=== PATIENT | male | born 1985 | race Caucasian/White ===

== ENCOUNTER → 2021-05-15 00:24 | Outpatient (CLI) | payer BC, SELFPAY ==
[2021-05-15 21:20] LABS: SARS-CoV-2 RNA PCR Negative
== END ==
PROVIDERS: PCP Emergency Medicine; Visit Provider Surgery
DX: Z01.812 Encounter for preprocedural laboratory examination (principal); Z20.822 Contact with and (suspected) exposure to COVID-19
CPT/HCPCS: C9803; U0003; U0005

== ENCOUNTER 2021-05-19 02:01 | Day surgery (SDC) | payer BC, SELFPAY ==
[2021-05-12 12:14] VITALS: BMI 34.2
[2021-05-19 12:36] VITALS: BP 147/93; PULSE 93; RESP 16; TEMP 36.4; O2SAT 99
--- NOTE | 2021-05-19 13:13 | P.PNAN_ITS ---
Anes - Initial Pre Proc Eval Procedure: Operation Date: 05/19/21 14:30 Proposed Procedures p Ventral Hernia Repair with Possible Mesh - Kike Hester DO Date/Time: 05/19/21 13:13 Surgeon: Kike Hester DO Pre Op Diagnosis: Ventral Hernia Patient Data Age: 36 Gender: M Height: 1.85 m Weight: 119 kg Last Vital Signs Temp 36.4 C 05/19/21 12:36 Pulse 93 05/19/21 12:36 Resp 16 05/19/21 12:36 BP 147/93 H 05/19/21 12:36 Pulse Ox 99 05/19/21 12:36 Allergies Allergy/AdvReac Type Severity Reaction Status Date / Time No Known Allergies Allergy Verified 05/19/21 12:43 Home Medications Medication Instructions Recorded Confirmed Type omeprazole 20 mg capsule,delayed 20 mg PO DAILY 04/28/21 05/12/21 History release Patient hx anesthesia problems: none Family hx anesthesia problems: none [facility] Past Medical History Medical History GERD (gastroesophageal reflux disease) High blood pressure Surgical History Surgical History H/O left knee surgery Family History Family History Father Diabetes mellitus Grandparent Diabetes mellitus Cerebrovascular accident Social History Social History (Updated 05/19/21 @ 13:13 by Salvatore Murcia DO) Years smoked: 8 Smoking status: Current every day smoker Tobacco type: e-cigarettes/vaping Alcohol intake: current Alcohol use details: 3-4 drinks every other day Living arrangements: with family 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 Questions were solicited and answers provided to the satisfaction of the patient/family/POA.
[2021-05-19] MEDS: LACTATED RINGERS 1,000 ML 30 ML IV CONT ×2 (13:25→15:23)
[2021-05-19] MEDS: ACETAMINOPHEN 500 MG TABLET 1000 MG PO (13:27)
[2021-05-19] MEDS: KETOROLAC 15 MG/ML VIAL (*BKC) IV PUSH (13:28)
--- NOTE | 2021-05-19 13:58 | WPDHPUPDATE1 ---
History and Physical Update Update Date/Time: 05/19/21 13:58 History and Physical has been reviewed, including an updated exam of the patient. There are NO changes in the patient's condition. Risks, benefits, and alternatives have been discussed and questions answered. Patient agrees to proceed with procedure.
[2021-05-19] MEDS: ceFAZolin 2 GM/D5W 50 ML 2 GM/50 ML BAG IVPB (14:17)
[2021-05-19] MEDS: BUPIVACAINE/EPINEPHRINE 0.5% 10 ML VIAL 30 ML INFILTRATE (14:50)
--- NOTE | 2021-05-19 15:18 | W.PM.PROC2 ---
Procedure Note - Detailed Date of Procedure 05/19/21 Pre-op Diagnosis Ventral Hernia Post-op Diagnosis same Procedure Performed Open ventral hernia repair with 6.6 cm Parietex ventral patch Surgeon Kike Hester, DO Anesthesia general and local (0.5% bupivacaine with epinephrine) Indications This is a 36-year-old man who presents with a painful bulge on his abdomen for the past month. He noticed this just off to the side and just above his umbilicus. It has become more painful with time. A reducible ventral hernia was noted just superior and to the left of his umbilicus on exam. Discussions were made with the patient on treatment options and decision was made to proceed with open ventral hernia repair with mesh. Findings Open ventral hernia repair with mesh was performed. The patient was found to have a 2 cm ventral hernia located just superior to the umbilical stalk. He actually had 2 hernias within close proximity right in this region. The hernia sac was reduced and there was a thin 2 mm bridge of fascia between the 2 small hernias. The bridge of fascia was transected with electrocautery to allow for adequate clearance of the peritoneum below the fascia. A preperitoneal pocket was then created for mesh placement. A 6.6 cm Parietex ventral patch was placed within the preperitoneal pocket and this was secured with 0 Ethibond U-stitch trans fascial sutures at the 4 tabs. The fascia was then closed in a vertical fashion using 0 Ethibond [id number] sutures. No specimens were obtained for pathology. Description of Procedure Procedure as well as risks, benefits, and alternatives were discussed with the patient. Written consent was obtained and placed in chart prior to procedure. Patient was brought back to surgical suite. He was placed supine on operating table. he was then intubated by Anesthesia Department. his abdomen was prepped and draped in sterile fashion using chlorhexidine prep. 0.5% bupivacaine with epinephrine was infiltrated locally around the operative area. A 4 cm curvilinear incision was made just superior to the umbilicus using a 15 blade scalpel. Electrocautery was used for hemostasis and for dissection down through the subcutaneous fat. Hernia sac was encountered and this was carefully freed up from surrounding subcutaneous fat using electrocautery. The hernia sac was freed up all the way down to the level of the fascia, and then it was reduced back down into the abdominal cavity. The umbilical stalk was then lifted off of the fascia with electrocautery. The hernia defect was then measured. This was measuring approximately 20 mm. The decision was made to use a 6.6 cm Parietex ventral patch. The peritoneum was cleared under the fascia circumferentially around the hernia using blunt dissection and electrocautery. Once a wide enough pocket was created for the mesh, the mesh was then placed within this preperitoneal pocket and laid out flat centered on the hernia defect. The mesh appeared to be sitting in proper position. The mesh was then secured at the 4 corners using 0 Ethibond U-stitch trans fascial sutures. Once all 4 sutures were placed, the mesh was lifted up against the abdominal wall and appeared to be properly centered on the hernia defect. The fascia of the hernia defect was then reapproximated over the mesh using 0 Ethibond [id number] sutures. The 4 transfascial sutures were then tied down in place. The repair was inspected and appeared secure. 0.5% bupivacaine with epinephrine was infiltrated around the fascia and subcutaneous space. The umbilical stalk was then reapproximated to the fascia using a 3 0 Vicryl simple interrupted suture. The deep dermis was reapproximated using 3 0 Vicryl simple interrupted sutures, and then the skin was approximated using 4 Monocryl running subcuticular suture. Exofin glue was then applied on top. The patient was then awakened from anesthesia, extubated, and tr
[2021-05-19 15:30] VITALS: BP 90/60; PULSE 91; RESP 22; TEMP 36.6; O2SAT 95
[2021-05-19 15:44] VITALS: BP 120/81; PULSE 81; RESP 16; O2SAT 98
[2021-05-19 15:58] VITALS: BP 128/78; PULSE 86; RESP 15; O2SAT 94
[2021-05-19 16:10] VITALS: BP 122/81; PULSE 78; RESP 15; O2SAT 95
[2021-05-19 16:40] VITALS: BP 118/72; PULSE 78; RESP 16; O2SAT 95
== END 2021-05-19 16:52 | disposition home or self-care (01) ==
PROVIDERS: PCP Emergency Medicine; Visit Provider Surgery
PROC: 0WQF0ZZ Repair Abdominal Wall, Open Approach (ICD-10-PCS; CPT 49560; principal; 2021-05-19 14:30)
DX: K43.9 Ventral hernia without obstruction or gangrene (principal); I10 Essential (primary) hypertension; K21.9 Gastro-esophageal reflux disease without esophagitis; F17.290 Nicotine dependence, other tobacco product, uncomplicated; E66.9 Obesity, unspecified; Z68.34 Body mass index [BMI] 34.0-34.9, adult
CPT/HCPCS: 49560; 49568; A9270; C1781; J0690; J1100; J1885; J2250; J2405; J2704; J3010; J7120